=== PATIENT | male | born 1990 | race Caucasian/White ===

== ENCOUNTER 2019-04-24 09:28 | Emergency (ER) | payer MEDICAID ==
[~2019-04-24] VITALS: Ht 193 cm; Wt 90.9 kg
[2019-04-24 09:35] VITALS: BP 125/89
[2019-04-24] MEDS ORDERED: GUAI600T50 PO (09:40)
[2019-04-24] MEDS ORDERED: DEXT236S PO (09:40)
== END 2019-04-24 11:23 | disposition left against medical advice (07) ==
LOC: EMS 09:32
DX: R05 Cough (principal); Z53.21 Procedure and treatment not carried out due to patient leaving prior to being seen by health care provider